=== PATIENT | female | born 1955 | race Caucasian/White ===

== ENCOUNTER → 2020-09-03 | Outpatient (CLI) | payer MEDICARE, BC ==
--- NOTE | 2020-09-03 09:28 | RAD ---
Examination: ABDOMEN COMPLETE History: Reason: ELEVATED LFTS / Spl. Instructions: / History: Comparison/Correlation: None Findings: Marked diffuse fatty infiltration of the liver is present. Nodular contour of the liver is present. Common bile duct is unremarkable. Multiple calculi are present within the gallbladder. Normal gallbladder wall thickness. Normal common bile duct diameter. No biliary dilatation. Spleen is unremarkable measuring up to 13.3 cm longitudinal. No venous flow is unremarkable. Inferior vena cava is unremarkable. Abdominal aorta is unremarkable with the patient's age. Abdominal aorta however is not well visualized due to body habitus and bowel gas. Proximal pancreas is normal. Distal pancreas is obscured by bowel gas. Right kidney measures up to 9.4 cm x 4.9 cm x 5 cm . Left kidney measures 11.2 cm x 4.7 cm x 4.9 cm. Hypoechoic region involving the left renal inferior pole medially measuring up to 1.4 cm diameter, representing a complex cyst is present. No upper abdominal ascites. Impression: Marked diffuse fatty infiltration of the liver. Nodular contour of the liver. This raises question of underlying cirrhosis or other fibrotic process. Cholelithiasis. No findings of acute cholecystitis. Left renal indeterminate lesion is present probably representing a complex cyst. Interval follow-up in 9-12 months with ultrasound exam to assess stability may be performed. Alternatively, interval follow-up CT without and with contrast of the kidneys can be performed for more definitive assessment and to assess stability. Electronically signed by: Patrick Quinn MD (09/03/2020 9:25 AM) [id number]
== END ==
LOC: US 08:16
PROVIDERS: ATTEND Specialist
DX: R94.5 Abnormal results of liver function studies (principal); K76.0 Fatty (change of) liver, not elsewhere classified; K80.20 Calculus of gallbladder without cholecystitis without obstruction; N28.9 Disorder of kidney and ureter, unspecified
CPT/HCPCS: 76700

== ENCOUNTER → 2021-07-29 | Outpatient (CLI) | payer MEDICARE, BC ==
--- NOTE | 2021-07-30 09:50 | RAD ---
US RENAL BILAT History: Reason: LT RENAL MASS / Spl. Instructions: / History: Comparison: August 26, 2020 Procedure: Transabdominal ultrasound images are obtained of the kidneys and bladder. Findings: Right kidney: measures 10.8 x 5.2 x 5.6 cm. Normal cortical echotexture. Corticomedullary differenti ation is preserved. No hydronephrosis. Left kidney: measures 11.7 x 5.0 x 5.7 cm. Small hypoechoic lesion within the left renal medulla lety sures 1.9 x 1.1 x 1.5 cm (compared to 1.4 x 1.1 x 1.37 m previously). No hydronephrosis. Urinary bladder: Decompressed urinary bladder. Aorta and IVC not well seen due to technique. IMPRESSION: 1. Hypoechoic left renal lesion, slightly increased compared to prior. Findings may represent compli cated cyst. Recommend continued ultrasound follow-up. Alternatively, multiphase CT or MRI can further evaluate. Electronically signed by: Kaleb Mejía DO (07/30/2021 9:48 AM) [id number]
== END ==
LOC: US 10:33
PROVIDERS: ATTEND Family Medicine
DX: D49.512 Neoplasm of unspecified behavior of left kidney (principal)
CPT/HCPCS: 76770